=== PATIENT | male | born 1955 | race African-American/Black ===

== ENCOUNTER 2019-09-29 12:19 | Inpatient (IN) | payer OTHER, MEDICAID ==
[~2019-09-29] VITALS: Ht 185.4 cm; Wt 87.1 kg
[2019-09-29] MEDS ORDERED: LORAZEPAM 2MG/ML CPJ ONE (12:55)
[2019-09-29] MEDS ORDERED: PROPOFOL 10MG/ML 100ML 100 ML IV ONE ×3 (12:55→20:25)
[2019-09-29] MEDS ORDERED: SODIUM CHLORIDE 0.9% 1,000 ML IV ONE (12:59)
[2019-09-29] MEDS ORDERED: LORAZEPAM 2MG/ML CPJ IV ONE (13:00)
[2019-09-29] MEDS ORDERED: ETOMIDATE 2MG/ML 10ML VIAL IV ONE (13:00)
[2019-09-29] MEDS ORDERED: SUCCINYLCHOLINE CHLORIDE 200MG/10ML IV ONE (13:00)
[2019-09-29] MEDS ORDERED: FENTANYL CITRATE/PF 50MCG/ML 2ML VIAL ONE (13:03)
[2019-09-29] MEDS ORDERED: FENTANYL 1000 MCG/100 ML IV PRN (13:15)
[2019-09-29] MEDS ORDERED: FENTANYL CITRATE/PF 50MCG/ML 2ML VIAL IV ONE (13:15)
[2019-09-29 14:15] LABS: CLARITY URINE CLEAR (CLEAR); COLOR URINE YELLOW (YELLOW); KETONES URINE NEGATIVE (NEGATIVE); LEUKOCYTE ESTERASE URINE NEGATIVE (NEGATIVE); NITRITE URINE NEGATIVE (NEGATIVE); OCCULT BLOOD URINE 2+ (NEGATIVE); PH URINE 6.5 (4.5-8.0); PROTEIN URINE 2+ (NEGATIVE); SPECIFIC GRAVITY URINE 1.012 (1.005-1.030); UROBILINOGEN URINE 0.2 E.U./dL (0.2-1.0)
[2019-09-29 14:27] LABS: BASOPHILS % 0.5 % (0.0-2.0); EOSINOPHILS % 1.1 % (0.0-5.0); HEMATOCRIT. 49.7 % (42.0-52.0); HEMOGLOBIN. 16.5 g/dL (14.0-18.0); LYMPHOCYTES % 26.1 % (20.0-50.0); MEAN CORPUSCULAR HEMOGLOBIN 30.3 pg (28.0-32.0); MEAN CORPUSCULAR VOLUME 91.2 fL (80.0-94.0); MEAN PLATELET VOLUME 8.4 fl (7.4-10.4); NEUTROPHILS % 61.3 % (40.0-76.0); PLATELET 272 x1000/uL (130-400); RED BLOOD CELL COUNT 5.45 mill/uL (4.7-6.1); RED CELL DISTRIBUTION WIDTH 13.9 % (11.6-14.6)
[2019-09-29 14:39] LABS: CHLORIDE 103 mEq/L (98-107); D-DIMER 0.3 mg/L FEU (<0.50); INR 1.1; PROTHROMBIN TIME 11.9 sec (9.6-11.0)
[2019-09-29 14:43] LABS: ETHANOL BLOOD 23 mg/dL
[2019-09-29] MEDS ORDERED: DOXYCYCLINE HYCLATE 100 MG/VIAL IV ONE (14:45)
[2019-09-29] MEDS ORDERED: VANCOMYCIN 1 G PREMIX 200 ML IV SCH (14:45)
[2019-09-29] MEDS ORDERED: ACETAMINOPHEN 325MG TABLET PO PRN (15:00)
[2019-09-29] MEDS ORDERED: MORPHINE SULFATE 2 MG/ML CPJ (NOT FOR IM USE) IV PRN (15:00)
[2019-09-29] MEDS ORDERED: DIPHENHYDRAMINE 50MG/ML VIAL IV PRN (15:00)
[2019-09-29] MEDS ORDERED: DOCUSATE SODIUM 100MG CAPSULE PO PRN (15:00)
[2019-09-29] MEDS ORDERED: NA PHOS,M-B/NA PHOS,DI-BA ENEMA 118ML PR PRN (15:00)
[2019-09-29] MEDS ORDERED: ONDANSETRON HCL 4MG/2ML INJ IV PRN (15:00)
[2019-09-29] MEDS ORDERED: HYDROCODONE/ACETAMINOPHEN 5/325MG TABLET PO PRN (15:00)
[2019-09-29] MEDS ORDERED: IPRATROPIUM/ALBUTEROL 0.5-3(2.5)MG/3ML NEB NEB PRN (15:00)
[2019-09-29] MEDS ORDERED: MAGNESIUM/ALUMINUM HYDROXIDE/SIMETHICONE 30ML UDC PO PRN (15:00)
[2019-09-29] MEDS ORDERED: LORAZEPAM 2MG/ML CPJ IV PRN (15:00)
[2019-09-29] MEDS ORDERED: AZITHROMYCIN 500MG in DEXTROSE 5% WATER 250ML IV SCH (15:30)
[2019-09-29 18:04] LABS: BG BASE EXCESS 2.3 mmol/L (-2.0-2.0); BG CARBOXYHEMOGLOBIN 2.3 % (0.5-1.5); BG DEOXYHEMOGLOBIN 0.3 % (0.0-5.0); BG FRACTION INSPIRED OXYGEN 100; BG HCO3 ACT 28.3 mmol/L (22.0-26.0); BG METHEMOGLOBIN 0.4 % (0.0-1.5); BG OXYGEN SATURATION 99.7 % (92.0-98.5); BG PCO2 48.7 mmHg (35.0-45.0); BG PH 7.382 (7.350-7.450); BG PO2 219.2 mmHg (75.0-100.0); BG SAMPLE SITE RIGHT BRACHIAL; BG TIDAL VOLUME(mL) 500 mL; BG TOTAL HEMOGLOBIN 16.2 g/dL (12.0-18.0); BG VENT MODE VENT - CPAP; BG VENT RATE 14 set
[2019-09-29] MEDS: CEFEPIME 1,000 MG in DEXTROSE 5% WATER 50 ML IV SCH (18:15)
[2019-09-29] MEDS: ENOXAPARIN 40MG/0.4ML SYR SUBCUT SCH (18:46)
[2019-09-29 19:20] LABS: CHLORIDE 103 mEq/L (98-107)
[2019-09-29] MEDS: DEXT 5%/0.45% NACL 1000ML 1,000 ML IV SCH (20:41)
[2019-09-29] MEDS ORDERED: EPINEPHRINE 0.1MG/ML (1:10,000) 10ML SYR ONE (21:37)
[2019-09-29] MEDS: FAMOTIDINE 20MG/2ML VIAL IV SCH (21:44)
[2019-09-29] MEDS ORDERED: PROPOFOL 10MG/ML 100ML 100 ML IV PRN (23:20)
[2019-09-30] MEDS: CEFEPIME 1,000 MG in DEXTROSE 5% WATER 50 ML IV SCH ×2 (03:00→15:00)
[2019-09-30 05:20] LABS: EOSINOPHILS % 2.5 % (0.0-5.0); HEMATOCRIT. 40.4 % (42.0-52.0); HEMOGLOBIN. 13.7 g/dL (14.0-18.0); MEAN CORPUSCULAR HEMOGLOBIN 30.5 pg (28.0-32.0); MEAN CORPUSCULAR VOLUME 90.2 fL (80.0-94.0); MEAN PLATELET VOLUME 7.5 fl (7.4-10.4); MONOCYTES % 9.5 % (2.0-8.0); PLATELET 190 x1000/uL (130-400); RED BLOOD CELL COUNT 4.48 mill/uL (4.7-6.1)
[2019-09-30 05:34] LABS: CHLORIDE 105 mEq/L (98-107)
[2019-09-30 05:43] LABS: LDL CHOLESTEROL 65 mg/dL (5-100)
[2019-09-30 05:44] LABS: HDL CHOLESTEROL 70 mg/dL (40-59)
[2019-09-30] MEDS: ASPIRIN 81MG EC TABLET PO SCH (09:00)
[2019-09-30] MEDS: FAMOTIDINE 20MG/2ML VIAL IV SCH (09:00)
[2019-09-30 09:12] LABS: BG BASE EXCESS 2.7 mmol/L (-2.0-2.0); BG CARBOXYHEMOGLOBIN 0.6 % (0.5-1.5); BG DEOXYHEMOGLOBIN 0.5 % (0.0-5.0); BG FRACTION INSPIRED OXYGEN 100; BG HCO3 ACT 26.4 mmol/L (22.0-26.0); BG METHEMOGLOBIN 0.2 % (0.0-1.5); BG OXYGEN SATURATION 99.5 % (92.0-98.5); BG OXYHEMOGLOBIN 98.7 % (94.0-97.0); BG PCO2 37.4 mmHg (35.0-45.0); BG PH 7.466 (7.350-7.450); BG PO2 217.7 mmHg (75.0-100.0); BG SAMPLE SITE LEFT RADIAL; BG TIDAL VOLUME(mL) 500 mL; BG TOTAL HEMOGLOBIN 14.5 g/dL (12.0-18.0); BG VENT MODE VENT - A/C; BG VENT RATE 14 set
[2019-09-30 11:18] LABS: *BARBITURATES SCREEN URINE NEGATIVE (NEGATIVE)
[2019-09-30 11:19] LABS: *BENZODIAZEPINES SCREEN URINE NEGATIVE (NEGATIVE); *COCAINE SCREEN URINE PRESUMTIVE POSITIVE (NEGATIVE)
[2019-09-30 11:20] LABS: *AMPHETAMINES SCREEN URINE NEGATIVE (NEGATIVE); CANNABINOID URINE SCREEN NEGATIVE (NEGATIVE); METHADONE URINE SCREEN NEGATIVE (NEGATIVE); OPIATES URINE SCREEN NEGATIVE (NEGATIVE); PHENCYCLIDINE URINE SCREEN PRESUMTIVE POSITIVE (NEGATIVE)
[2019-09-30] MEDS: DEXT 5%/0.45% NACL 1000ML 1,000 ML IV SCH ×2 (11:47→21:30)
[2019-09-30] MEDS ORDERED: PROPOFOL 10MG/ML 100ML 100 ML IV PRN (13:15)
[2019-09-30] MEDS: ENOXAPARIN 40MG/0.4ML SYR SUBCUT SCH (16:15)
[2019-09-30] MEDS: LEVETIRACETAM 500MG PREMIX 100 ML IV SCH (21:02)
[2019-09-30 23:49] LABS: CREATINE KINASE 636 IU/L (39-308); CREATINE KINASE MB FRACTION 1.6 ng/mL (0.5-3.6)
[2019-10-01] MEDS: FAMOTIDINE 20MG/2ML VIAL IV SCH ×3 (02:30→22:27)
[2019-10-01 04:48] LABS: CHLORIDE 109 mEq/L (98-107)
[2019-10-01 04:57] LABS: BASOPHILS % 0.7 % (0.0-2.0); CREATINE KINASE 594 IU/L (39-308); EOSINOPHILS % 3.6 % (0.0-5.0); HEMATOCRIT. 45.7 % (42.0-52.0); HEMOGLOBIN. 15.1 g/dL (14.0-18.0); LYMPHOCYTES % 16.5 % (20.0-50.0); MEAN CORPUSCULAR VOLUME 91.1 fL (80.0-94.0); MEAN PLATELET VOLUME 8.3 fl (7.4-10.4); MONOCYTES % 13.9 % (2.0-8.0); NEUTROPHILS % 65.3 % (40.0-76.0); PLATELET 190 x1000/uL (130-400); RED BLOOD CELL COUNT 5.02 mill/uL (4.7-6.1); RED CELL DISTRIBUTION WIDTH 13.9 % (11.6-14.6)
[2019-10-01 04:58] LABS: CREATINE KINASE MB FRACTION 1.4 ng/mL (0.5-3.6)
[2019-10-01] MEDS: DEXT 5%/0.45% NACL 1000ML 1,000 ML IV SCH ×2 (07:30→16:57)
[2019-10-01 08:24] LABS: BG CARBOXYHEMOGLOBIN 0.9 % (0.5-1.5); BG DEOXYHEMOGLOBIN 3.6 % (0.0-5.0); BG HCO3 ACT 24.1 mmol/L (22.0-26.0); BG METHEMOGLOBIN 0.3 % (0.0-1.5); BG OXYGEN SATURATION 96.4 % (92.0-98.5); BG OXYHEMOGLOBIN 95.2 % (94.0-97.0); BG PCO2 30.6 mmHg (35.0-45.0); BG PH 7.514 (7.350-7.450); BG PO2 75.5 mmHg (75.0-100.0); BG SAMPLE SITE RIGHT RADIAL; BG TIDAL VOLUME(mL) 500 mL; BG TOTAL HEMOGLOBIN 14.8 g/dL (12.0-18.0); BG VENT MODE VENT - A/C; BG VENT RATE 12 set
[2019-10-01] MEDS: LEVETIRACETAM 500MG PREMIX 100 ML IV SCH ×2 (09:00→22:27)
[2019-10-01] MEDS: ASPIRIN 81MG EC TABLET PO SCH (09:00)
[2019-10-01] MEDS ORDERED: POTASSIUM CHLORIDE INJ 40 MEQ in DEXT 5% WATER 250 ML IV NR (10:00)
[2019-10-01] MEDS ORDERED: FENTANYL CITRATE/PF 1,000 MCG in SODIUM CHLORIDE 0.9% 80 ML IV PRN (10:45)
[2019-10-01] MEDS ORDERED: PROPOFOL 10MG/ML 100ML 100 ML IV PRN (11:45)
[2019-10-01] MEDS: CEFEPIME 1,000 MG in DEXTROSE 5% WATER 50 ML IV SCH (13:00)
[2019-10-01] MEDS: METRONIDAZOLE 500MG TABLET PO SCH ×2 (14:00→22:35)
[2019-10-01 15:02] LABS: CREATINE KINASE 467 IU/L (39-308)
[2019-10-01 15:03] LABS: CREATINE KINASE MB FRACTION 1.3 ng/mL (0.5-3.6)
[2019-10-01] MEDS: ENOXAPARIN 40MG/0.4ML SYR SUBCUT SCH (16:56)
[2019-10-02] VITALS (33 sets, daily range): BP systolic 82–181; BP diastolic 49–110
[2019-10-02] MEDS: DEXT 5%/0.45% NACL 1000ML 1,000 ML IV SCH ×3 (03:30→23:15)
[2019-10-02] MEDS: CEFEPIME 1,000 MG in DEXTROSE 5% WATER 50 ML IV SCH ×2 (04:20→12:34)
[2019-10-02 04:41] LABS: HEMATOCRIT. 43.2 % (42.0-52.0); HEMOGLOBIN. 14.1 g/dL (14.0-18.0); MEAN CORPUSCULAR HEMOGLOBIN 30.1 pg (28.0-32.0); MEAN CORPUSCULAR VOLUME 92.2 fL (80.0-94.0); MEAN PLATELET VOLUME 8.2 fl (7.4-10.4); PLATELET 186 x1000/uL (130-400); RED BLOOD CELL COUNT 4.69 mill/uL (4.7-6.1); RED CELL DISTRIBUTION WIDTH 14.2 % (11.6-14.6)
[2019-10-02 04:48] LABS: CHLORIDE 111 mEq/L (98-107)
[2019-10-02 04:58] LABS: CREATINE KINASE 601 IU/L (39-308)
[2019-10-02] MEDS: FAMOTIDINE 20MG/2ML VIAL IV SCH ×2 (09:46→22:25)
[2019-10-02] MEDS: ASPIRIN 81MG EC TABLET PO SCH (09:46)
[2019-10-02] MEDS: METRONIDAZOLE 500MG TABLET PO SCH ×3 (09:46→22:25)
[2019-10-02 10:26] LABS: BG BASE EXCESS -1.5 mmol/L (-2.0-2.0); BG CARBOXYHEMOGLOBIN 0.7 % (0.5-1.5); BG DEOXYHEMOGLOBIN 5.4 % (0.0-5.0); BG FRACTION INSPIRED OXYGEN 44; BG METHEMOGLOBIN 0.2 % (0.0-1.5); BG OXYGEN SATURATION 94.6 % (92.0-98.5); BG OXYHEMOGLOBIN 93.7 % (94.0-97.0); BG PCO2 48.8 mmHg (35.0-45.0); BG PH 7.328 (7.350-7.450); BG PO2 73.2 mmHg (75.0-100.0); BG SAMPLE SITE LEFT BRACHIAL; BG TIDAL VOLUME(mL) 500 mL; BG TOTAL HEMOGLOBIN 15.9 g/dL (12.0-18.0); BG VENT MODE VENT - A/C; BG VENT RATE 15 set
[2019-10-02] MEDS ORDERED: LORAZEPAM 2MG/ML CPJ IV NR (10:30)
[2019-10-02 11:19] LABS: BG BASE EXCESS -2.1 mmol/L (-2.0-2.0); BG CARBOXYHEMOGLOBIN 0.4 % (0.5-1.5); BG DEOXYHEMOGLOBIN 7.1 % (0.0-5.0); BG FRACTION INSPIRED OXYGEN 45; BG HCO3 ACT 23.8 mmol/L (22.0-26.0); BG METHEMOGLOBIN 0.3 % (0.0-1.5); BG OXYGEN SATURATION 92.8 % (92.0-98.5); BG OXYHEMOGLOBIN 92.2 % (94.0-97.0); BG PCO2 45.1 mmHg (35.0-45.0); BG PH 7.341 (7.350-7.450); BG PO2 64.8 mmHg (75.0-100.0); BG PRESSURE SUPPORT 8; BG SAMPLE SITE RIGHT RADIAL; BG TOTAL HEMOGLOBIN 14.6 g/dL (12.0-18.0); BG VENT MODE VENT - CPAP
[2019-10-02] MEDS: LEVETIRACETAM 500MG PREMIX 100 ML IV SCH ×2 (11:34→22:25)
[2019-10-02 13:18] LABS: PLATELET ESTIMATE NORMAL
[2019-10-02] MEDS: ENOXAPARIN 40MG/0.4ML SYR SUBCUT SCH (15:26)
[2019-10-02] MEDS: CLONIDINE 0.1MG TABLET PO PRN (22:25)
[2019-10-03] VITALS (23 sets, daily range): BP systolic 131–184; BP diastolic 57–99
[2019-10-03] MEDS: CEFEPIME 1,000 MG in DEXTROSE 5% WATER 50 ML IV SCH (01:45)
[2019-10-03 05:48] LABS: BASOPHILS % 0.5 % (0.0-2.0); EOSINOPHILS % 3.2 % (0.0-5.0); HEMATOCRIT. 41.2 % (42.0-52.0); HEMOGLOBIN. 13.5 g/dL (14.0-18.0); LYMPHOCYTES % 14.9 % (20.0-50.0); MEAN CORPUSCULAR HEMOGLOBIN 30.1 pg (28.0-32.0); MEAN CORPUSCULAR VOLUME 91.7 fL (80.0-94.0); MEAN PLATELET VOLUME 7.9 fl (7.4-10.4); NEUTROPHILS % 70.4 % (40.0-76.0); PLATELET 184 x1000/uL (130-400); RED CELL DISTRIBUTION WIDTH 13.7 % (11.6-14.6)
[2019-10-03 05:59] LABS: CHLORIDE 109 mEq/L (98-107)
[2019-10-03] MEDS: METRONIDAZOLE 500MG TABLET PO SCH (06:07)
[2019-10-03] MEDS: CLONIDINE 0.1MG TABLET PO PRN ×2 (06:12→09:07)
[2019-10-03] MEDS: FAMOTIDINE 20MG/2ML VIAL IV SCH ×2 (09:07→20:42)
[2019-10-03] MEDS: ASPIRIN 81MG EC TABLET PO SCH (09:07)
[2019-10-03] MEDS: DEXT 5%/0.45% NACL 1000ML 1,000 ML IV SCH (10:09)
[2019-10-03] MEDS: LEVETIRACETAM 500MG PREMIX 100 ML IV SCH ×2 (10:23→20:42)
[2019-10-03] MEDS ORDERED: POTASSIUM CHLORIDE 20MEQ/PACKET PO NR ×2 (11:30→12:00)
[2019-10-03] MEDS: AMLODIPINE 10MG TABLET PO SCH (11:52)
[2019-10-03] MEDS: ENOXAPARIN 40MG/0.4ML SYR SUBCUT SCH (15:35)
[2019-10-03 18:16] LABS: BG BASE EXCESS 1.8 mmol/L (-2.0-2.0); BG CARBOXYHEMOGLOBIN 0.9 % (0.5-1.5); BG DEOXYHEMOGLOBIN 11.5 % (0.0-5.0); BG OXYGEN SATURATION 88.4 % (92.0-98.5); BG OXYHEMOGLOBIN 87.6 % (94.0-97.0); BG PCO2 39.2 mmHg (35.0-45.0); BG PH 7.439 (7.350-7.450); BG SAMPLE SITE RIGHT RADIAL; BG TOTAL HEMOGLOBIN 14.6 g/dL (12.0-18.0); BG VENT MODE ROOM AIR
[2019-10-04 00:51] VITALS: BP 178/100
[2019-10-04] MEDS: GUAIFENESIN 200MG/10ML SUGAR FREE UDC PO PRN ×2 (03:43→13:40)
[2019-10-04] MEDS: CLONIDINE 0.1MG TABLET PO PRN (03:43)
[2019-10-04 04:00] VITALS: BP 127/66
[2019-10-04] MEDS: DEXT 5%/0.45% NACL 1000ML 1,000 ML IV SCH ×2 (04:00→09:30)
[2019-10-04 07:27] LABS: BASOPHILS % 0.4 % (0.0-2.0); EOSINOPHILS % 4.6 % (0.0-5.0); HEMATOCRIT. 39.3 % (42.0-52.0); HEMOGLOBIN. 13.1 g/dL (14.0-18.0); LYMPHOCYTES % 19.7 % (20.0-50.0); MEAN CORPUSCULAR HEMOGLOBIN 30.3 pg (28.0-32.0); MEAN CORPUSCULAR VOLUME 90.9 fL (80.0-94.0); MEAN PLATELET VOLUME 8.2 fl (7.4-10.4); MONOCYTES % 13.1 % (2.0-8.0); NEUTROPHILS % 62.2 % (40.0-76.0); PLATELET 179 x1000/uL (130-400); RED BLOOD CELL COUNT 4.33 mill/uL (4.7-6.1); RED CELL DISTRIBUTION WIDTH 13.3 % (11.6-14.6)
[2019-10-04 07:44] LABS: CHLORIDE 108 mEq/L (98-107)
[2019-10-04 08:00] VITALS: BP 152/71
[2019-10-04] MEDS: ASPIRIN 81MG EC TABLET PO SCH (09:30)
[2019-10-04] MEDS: AMLODIPINE 10MG TABLET PO SCH (09:30)
[2019-10-04] MEDS: FAMOTIDINE 20MG/2ML VIAL IV SCH ×2 (09:30→20:52)
[2019-10-04] MEDS ORDERED: POTASSIUM CHLORIDE 20MEQ TABLET SR PO NR (10:30)
[2019-10-04] MEDS: LEVETIRACETAM 500MG PREMIX 100 ML IV SCH ×2 (11:37→20:51)
[2019-10-04 12:00] VITALS: BP 153/78
[2019-10-04] MEDS: ENOXAPARIN 100MG/ML SYR SUBCUT SCH ×2 (13:41→21:34)
[2019-10-04] MEDS: METHYLPREDNISOLONE SOD SUCC 40 MG/ML VIAL IV SCH ×2 (13:41→21:09)
[2019-10-04] MEDS ORDERED: IOHEXOL-350 100 ML BOTTLE ONE (15:17)
[2019-10-04 16:00] VITALS: BP 153/88
[2019-10-04 17:28] LABS: HEPATITIS B SURFACE ANTIGEN NEGATIVE
[2019-10-04 17:58] LABS: HEPATITIS A AB IGM NEGATIVE (NEGATIVE)
[2019-10-04] MEDS: IPRATROPIUM/ALBUTEROL 0.5-3(2.5)MG/3ML NEB HHN SCH ×2 (19:50)
[2019-10-04 20:00] VITALS: BP 136/79
[2019-10-04] MEDS: LORAZEPAM 2MG/ML CPJ IV PRN (22:25)
[2019-10-04] MEDS ORDERED: LORAZEPAM 2MG/ML CPJ IV PRN (22:30)
[2019-10-05] VITALS: BP 141/73
[2019-10-05 04:00] VITALS: BP 112/73
[2019-10-05 07:39] LABS: BASOPHILS % 0.5 % (0.0-2.0); HEMATOCRIT. 41.9 % (42.0-52.0); LYMPHOCYTES % 8.6 % (20.0-50.0); MEAN CORPUSCULAR HEMOGLOBIN 29.9 pg (28.0-32.0); MEAN CORPUSCULAR VOLUME 89.7 fL (80.0-94.0); MEAN PLATELET VOLUME 8.2 fl (7.4-10.4); MONOCYTES % 6.9 % (2.0-8.0); PLATELET 205 x1000/uL (130-400); RED BLOOD CELL COUNT 4.67 mill/uL (4.7-6.1); RED CELL DISTRIBUTION WIDTH 13.2 % (11.6-14.6)
[2019-10-05 07:46] LABS: CHLORIDE 106 mEq/L (98-107)
[2019-10-05 07:53] VITALS: BP 128/67
[2019-10-05] MEDS: ASPIRIN 81MG EC TABLET PO SCH (08:40)
[2019-10-05] MEDS: LEVETIRACETAM 500MG PREMIX 100 ML IV SCH ×2 (08:40→21:25)
[2019-10-05] MEDS: METHYLPREDNISOLONE SOD SUCC 40 MG/ML VIAL IV SCH ×2 (08:40→21:26)
[2019-10-05] MEDS: FAMOTIDINE 20MG/2ML VIAL IV SCH ×2 (08:41→21:25)
[2019-10-05] MEDS: AMLODIPINE 10MG TABLET PO SCH (08:41)
[2019-10-05] MEDS: ENOXAPARIN 100MG/ML SYR SUBCUT SCH ×2 (08:41→21:27)
[2019-10-05] MEDS: IPRATROPIUM/ALBUTEROL 0.5-3(2.5)MG/3ML NEB HHN SCH ×2 (09:00→13:45)
[2019-10-05] MEDS: LORAZEPAM 2MG/ML CPJ IV PRN (10:49)
[2019-10-05 12:00] VITALS: BP 129/66
[2019-10-05] MEDS ORDERED: APIX5TAB MT (12:18)
[2019-10-05] MEDS ORDERED: ASPI-1497 MT (12:18)
[2019-10-05] MEDS ORDERED: KEPP500 MT (12:18)
[2019-10-05] MEDS ORDERED: FLUT1AER INH (12:18)
[2019-10-05] MEDS ORDERED: FAMO-135 PO (12:18)
[2019-10-05] MEDS ORDERED: ALBU90AE INH (12:18)
[2019-10-05] MEDS ORDERED: P20 PO (12:18)
[2019-10-05] MEDS ORDERED: AMLO10TA4 MT (12:18)
[2019-10-05 16:00] VITALS: BP 127/68
[2019-10-05] MEDS: GUAIFENESIN 200MG/10ML SUGAR FREE UDC PO PRN (19:01)
[2019-10-05 20:00] VITALS: BP 144/84
[2019-10-06 00:43] VITALS: BP 125/54
[2019-10-06 04:00] VITALS: BP 119/56
[2019-10-06 08:00] VITALS: BP 131/88
[2019-10-06] MEDS: METHYLPREDNISOLONE SOD SUCC 40 MG/ML VIAL IV SCH (09:47)
[2019-10-06] MEDS: ASPIRIN 81MG EC TABLET PO SCH (09:47)
[2019-10-06] MEDS: FAMOTIDINE 20MG/2ML VIAL IV SCH (09:47)
[2019-10-06] MEDS: AMLODIPINE 10MG TABLET PO SCH (09:47)
[2019-10-06] MEDS: ENOXAPARIN 100MG/ML SYR SUBCUT SCH (09:47)
[2019-10-06] MEDS: LEVETIRACETAM 500MG PREMIX 100 ML IV SCH (09:54)
[2019-10-06] MEDS: IPRATROPIUM/ALBUTEROL 0.5-3(2.5)MG/3ML NEB HHN SCH (10:21)
[2019-10-06 12:44] VITALS: BP 120/88
[2019-10-06 12:54] VITALS: BP 120/88
[2019-10-08 05:10] LABS: HIV SCREEN 4G Non Reactive (Non Reactive)
== END 2019-10-06 14:35 | disposition home or self-care (01) | DRG 207 ==
LOC: ER 12:26 → EDBD 13:30 → MICUSO 13:30 → EDBEDREQ 13:33 → EDBEDREQTM 13:33 → MICUNO 09-30 20:52 → MICUSO 09-30 23:42 → CVICU 10-02 09:03 → 5WST 10-03 23:36
PROVIDERS: ADMIT Internal Medicine; ATTEND Internal Medicine
PROC: 0BH17EZ Insertion of Endotracheal Airway into Trachea, Via Natural or Artificial Opening (ICD-10-PCS; principal; 2019-09-29)
PROC: 5A1955Z Respiratory Ventilation, Greater than 96 Consecutive Hours (ICD-10-PCS; 2019-09-29)
PROC: 4A00X4Z Measurement of Central Nervous Electrical Activity, External Approach (ICD-10-PCS; 2019-10-04)
DX: J96.01 Acute respiratory failure with hypoxia (principal); G92 Toxic encephalopathy; I26.99 Other pulmonary embolism without acute cor pulmonale; G40.89 Other seizures; E87.2 Acidosis; J68.0 Bronchitis and pneumonitis due to chemicals, gases, fumes and vapors; N13.30 Unspecified hydronephrosis; E87.6 Hypokalemia; E86.0 Dehydration; F10.129 Alcohol abuse with intoxication, unspecified; R00.0 Tachycardia, unspecified; F16.10 Hallucinogen abuse, uncomplicated; Z20.828 Contact with and (suspected) exposure to other viral communicable diseases; R74.8 Abnormal levels of other serum enzymes; F20.9 Schizophrenia, unspecified; Y92.89 Other specified places as the place of occurrence of the external cause; G20 Parkinson's disease; I10 Essential (primary) hypertension; H70.10 Chronic mastoiditis, unspecified ear; J32.4 Chronic pansinusitis; J45.909 Unspecified asthma, uncomplicated; Z91.19 Patient's noncompliance with other medical treatment and regimen; I27.20 Pulmonary hypertension, unspecified; Y90.1 Blood alcohol level of 20-39 mg/100 ml
CPT/HCPCS: 36415; 36600; 70551; 71045; 71275; 74018; 76770; 80048; 80053; 80061; 80305; 80320; 81003; 82375; 82550; 82553; 82805; 82962; 83036; 83605; 83880; 84439; 84443; 84478; 84484; 85025; 85379; 86705; 86709; 86803; 87070; 87340; 87389; 92610; 93005; 93306; 93970; 94002; 94003; 94640; 95816; 96365; 97162; 97530; 99291; J0456; J0692; J1200; J1650; J1953; J2060; J2704; J2920; J3010; J3370; J3480; J3490; J7030; J7050; J7060; Q9967; G0480; U0003-CS